=== PATIENT | male | born 1965 | race Caucasian/White ===

== ENCOUNTER 2020-02-24 14:31 | Outpatient (CLI) | payer OTHER, SELFPAY ==
--- NOTE | ~2020-02-24 | MR_ITS ---
EXAMINATION: MR lumbar spine wo con DATE: 02/24/2020 15:20 INDICATION: Lumbar radiculopathy. TECHNIQUE: Magnetic resonance imaging (MRI) of the lumbar spine was performed without intravenous con trast. Sequences included sagittal T2-weighted FSE, sagittal T2-weighted FS FSE, sagittal T1-weighted FSE, and axial T2-weighted FSE. COMPARISON: None FINDINGS: There is 5 degrees dextrocurvature of lumbar spine. There are Schmorl's nodes at most level s. There is mildly decreased disc height at T11-T12 and L4-L5. The distal spinal cord signal intensit y is normal. The conus medullaris is at T12-L1. The following disc levels are specifically discussed: L1-L2: The disc is bulging. There is moderate right and mild left facet joint osteoarthritis. There i s moderate right and mild left neural foraminal stenosis. There is mild central canal stenosis. L2-L3: The disc is bulging. There is moderate bilateral facet joint osteoarthritis. There is mild lisa ateral neural foraminal stenosis. There is mild central canal stenosis. L3-L4: The disc is bulging. There is moderate right and severe left facet joint osteoarthritis. There is mild bilateral neural foraminal stenosis. There is mild central canal stenosis. L4-L5: The disc is bulging and has an annular fissure. There is severe bilateral facet joint osteoart hritis. Epidural lipomatosis is noted. There is mild bilateral neural foraminal stenosis. There is mo derate central canal stenosis. L5-S1: The disc is bulging and has an annular fissure. There is severe right and moderate left facet joint osteoarthritis. There is mild bilateral neural foraminal stenosis. There is mild central canal stenosis. IMPRESSION: 1. Moderate lumbar spondylosis. Reviewed, dictated and finalized at location A.
== END 2020-02-24 14:32 | disposition home or self-care (01) ==
PROVIDERS: PCP Family Medicine; Visit Provider Nurse Practitioner Family
DX: M47.26 Other spondylosis with radiculopathy, lumbar region (principal)
CPT/HCPCS: 72148

== ENCOUNTER 2020-12-30 10:04 | Emergency (ER) | payer OTHER, SELFPAY ==
--- NOTE | 2020-12-30 10:10 | ED.URI ---
HPI - URI/Sore Throat General Chief Complaint: Upper Respiratory Infection Stated Complaint: Sinus,Cough Time Seen by Provider: 12/30/20 10:16 Source: patient and RN notes reviewed Mode of arrival: ambulatory Limitations: no limitations History of Present Illness HPI Narrative: 55-year-old male presents with concern for 5-day history of sinus drainage, nasal congestion, cough. Reports the cough is causing him to have muscle tightness. Reports the cough is persistent and keeps him awake at night. He denies fever, body aches, sweats. Reports chills. Reports he was vaccinated for Covid. He denies any known sick contacts. Reports he has been taking allergy medicine, has not taken any other fhlk-yqn-rykimsr remedies because he is not sure what he is able to take with his other medicines. MD elicited complaint: cough Related Data Home Medications Medication Instructions Recorded Confirmed rosuvastatin 10 mg tablet 10 mg PO DAILY 05/13/19 12/30/20 lisinopril 20 1 tablet PO DAILY tablet 08/10/19 12/30/20 mg-hydrochlorothiazide 12.5 mg tablet allopurinol 300 mg tablet 300 mg PO DAILY tablet 12/28/20 12/30/20 metoprolol succinate 50 mg 50 mg PO DAILY tablet 12/28/20 12/30/20 tablet,extended release 24 hr Allergies Allergy/AdvReac Type Severity Reaction Status Date / Time No Known Allergies Allergy Verified 12/28/20 14:15 Review of Systems Review of Systems: Narrative: CONSTITUTIONAL: Denies malaise, chills, sweats, or fever. EYES: Denies visual changes, redness, or discharge. ENT: Reports rhinorrhea, congestion, sore throat. Denies sinus pain, otalgia CARDIOVASCULAR: Denies chest pain, palpitations, or edema. RESPIRATORY: Reports persistent cough. Denies dyspnea. GASTROINTESTINAL: Denies abdominal pain, nausea, vomiting, diarrhea SKIN: Denies rash or itching. MUSCULOSKELETAL: Denies myalgia. NEUROLOGIC: Denies headache. All systems reviewed & are unremarkable except as noted in HPI and below PMFSH Past Medical History Medical History Congenital absence of right kidney Dyslipidemia Essential (primary) hypertension Factor 5 Leiden mutation, heterozygous GERD (gastroesophageal reflux disease) Hypertension Idiopathic gout VTE (venous thromboembolism) Surgical History Surgical History History of hernia surgery b/l inguinal hernia repair umblical hernia repair 02/2018 History of tonsillectomy Family History Family History Unknown Malignant neoplasm of prostate Social History Social History Smoking status: Former smoker Tobacco type: cigarettes Second hand tobacco smoke exposure: No Smoking end date: 06/23/02 Alcohol intake: current Alcohol use details: consumes 2 vodka drinks weekly Substance use: never Substance use type: does not use Gender identity (if verbalized by the patient): Male Comments At time of signature, agree with nursing past medical, surgical, social and family history. There is no relevant family history pertinent to the presenting complaint Exam Narrative: Exam Narrative: GENERAL: Well-appearing, well-nourished, and in no acute distress. HEAD: Normocephalic EYES: PERRLA, conjunctivae clear ENT: Nares clear, turbinates erythematous, clear discharge. Mucous membranes moist. TM pearly zhu with sharp light reflex bilaterally; no tragal tenderness. Oropharynx not erythematous without lesions. Postnasal drainage noted tonsils not enlarged and without exudate, no drooling, no hoarseness, no trismus, uvula midline. NECK: Supple. No lymphadenopathy CHEST: Clear to auscultation, breath sounds equal. No wheezing, rhonchi, rales, or stridor. No respiratory distress, speaks in full sentences. HEART: Regular rate and rhythm. No murmur heard. SKIN:
[2020-12-30 10:17] VITALS: BP 135/82; PULSE 89; RESP 18; TEMP 37.2; O2SAT 99
[2020-12-30 10:18] VITALS: BP 135/82; PULSE 89; RESP 18; TEMP 37.2; O2SAT 99
== END 2020-12-30 10:32 | disposition home or self-care (01) ==
PROVIDERS: Emergency Provider Nurse Practitioner; PCP Family Medicine
DX: J40 Bronchitis, not specified as acute or chronic (principal); Z87.891 Personal history of nicotine dependence; E78.5 Hyperlipidemia, unspecified; I10 Essential (primary) hypertension; K21.9 Gastro-esophageal reflux disease without esophagitis; M10.00 Idiopathic gout, unspecified site; Z86.718 Personal history of other venous thrombosis and embolism; D68.51 Activated protein C resistance; Q60.0 Renal agenesis, unilateral
CPT/HCPCS: 99213; G0463

== ENCOUNTER → 2021-08-24 10:56 | Outpatient (CLI) | payer OTHER, SELFPAY ==
--- NOTE | ~2021-08-24 | US_ITS ---
US soft tissue head and neck 08/24/2021 11:11 Indication: Palpable left neck mass Procedure: High-resolution Limited ultrasound of the left neck Comparison: . No prior studies for comparison. Findings: There are 2 adjacent hypoechoic masses without echogenic hilum, largest measuring 3 x 2.2 x 1.7 cm and the smaller measuring 11 mm. These are likely pathologic lymph nodes. Impression: 1: Pathologic enlarged left neck lymph nodes. These may be reactive, although malignancy is not exclu ded. Consider percutaneous biopsy. Reviewed, dictated and finalized at location A. [employer] PROFESSOR Impression: 1: Pathologic enlarged left neck lymph nodes. These may be reactive, although m alignancy is not excluded. Consider percutaneous biopsy.
== END ==
PROVIDERS: PCP Family Medicine; Visit Provider Nurse Practitioner
DX: R59.0 Localized enlarged lymph nodes (principal)
CPT/HCPCS: 76536

== ENCOUNTER 2021-09-04 10:30 | Outpatient (CLI) | payer OTHER, SELFPAY ==
--- NOTE | ~2021-09-04 | US_ITS ---
EXAMINATION: US soft tissue head and neck DATE: 09/04/2021 11:30 INDICATION: Localized enlarged left cervical lymph nodes TECHNIQUE: Multiple grayscale and Doppler ultrasound images of the head of concern at the left neck w ere obtained for biopsy planning. While reviewing the risks and benefits of the procedure with the pa tient is determined that the patient had not discontinued his anticoagulation. It was elected to defe r and reschedule the biopsy following appropriate discontinuation of anticoagulation. COMPARISON: 08/24/2021 FINDINGS: No significant interval change in a 2.5 x 1.7 x 1.7 cm hypoechoic left jugular chain lymph node with vascular flow seen along a small fatty hilum. IMPRESSION: 1. Planned biopsy of a concerning enlarged left jugular chain lymph node which following discussion w ith the patient was deferred due to failure to discontinue anticoagulation. The patient will discuss articulation with his primary care physician with plans to reschedule the biopsy following temporary discontinuation of anticoagulation. Reviewed, dictated and finalized at location A. IMPRESSION: 1. Planned biopsy of a concerning enlarged left jugular chain lymph node which following discussion with the patient was deferred due to failure to discontinu e anticoagulation. The patient will discuss articulation with his primary care physician with plans to reschedule the biopsy following temporary discontinuati on of anticoagulation.
== END 2021-09-04 10:31 | disposition home or self-care (01) ==
LOC: ANHIMG 10:30
PROVIDERS: PCP Family Medicine; Visit Provider Nurse Practitioner
DX: R59.0 Localized enlarged lymph nodes (principal)
CPT/HCPCS: 76536

== ENCOUNTER 2021-09-14 08:57 | Outpatient (CLI) | payer OTHER, SELFPAY ==
--- NOTE | ~2021-09-14 | US_ITS ---
EXAMINATION: US biopsy lymph node DATE: 09/14/2021 09:54 INDICATION: Localized enlarged lymph nodes of the left neck TECHNIQUE: The procedure including the risks and benefits was discussed with the patient. Risks discu ssed included bleeding and infection. The patient understood the risks and agreed to proceed. The sk in overlying the left neck was prepped and draped in usual sterile fashion. Anesthetic was administe red with 1% lidocaine subcutaneously. A 14 gauge core biopsy needle was advanced under continuous ul trasound observation to the lesion of interest. 5 core biopsy specimens were obtained. The needle w as removed and the entry site was cleaned and dressed. Post procedure ultrasound demonstrated no hem orrhage. FINDINGS: Ultrasound images demonstrate biopsy needles advanced into a 2.5 x 1.8 cm left posterior tr iangle cervical lymph node. IMPRESSION: 1. Successful Ultrasound-guided biopsy of an enlarged left cervical lymph node. Reviewed, dictated and finalized at location A.
== END 2021-09-14 08:58 | disposition home or self-care (01) ==
LOC: ANHIMG 08:59
PROVIDERS: PCP Family Medicine; Visit Provider Nurse Practitioner
DX: R59.0 Localized enlarged lymph nodes (principal); C77.0 Secondary and unspecified malignant neoplasm of lymph nodes of head, face and neck
CPT/HCPCS: 38505; 76942; 88108; 88184; 88185; 88305; 88342

== ENCOUNTER → 2022-04-19 09:58 | Outpatient (CLI) | payer OTHER, SELFPAY ==
--- NOTE | ~2022-04-19 | XR_ITS ---
EXAMINATION: XR hand RT 2V INDICATION: Right hand pain, injury to third metacarpophalangeal joint TECHNIQUE: Three views of the right hand are obtained. COMPARISON: 09/03/2007 FINDINGS: Bone alignment is normal. There is no fracture. There is mild osteoarthritis of multiple in terphalangeal joints. IMPRESSION: 1. No acute osseous abnormality. Reviewed, dictated and finalized at location A.
== END ==
PROVIDERS: PCP Nurse Practitioner Family; Visit Provider Nurse Practitioner Family
DX: S69.91XA Unspecified injury of right wrist, hand and finger(s), initial encounter (principal); X58.XXXA Exposure to other specified factors, initial encounter
CPT/HCPCS: 73120

== ENCOUNTER 2023-10-02 18:14 | Emergency (ER) | payer OTHER, SELFPAY ==
[2023-10-02 18:23] VITALS: BP 118/82; PULSE 77; RESP 18; TEMP 36.9; O2SAT 100
--- NOTE | 2023-10-02 18:26 | ED.URI ---
HPI - URI/Sore Throat General Stated Complaint: Sinus Problems Time Seen by Provider: 10/02/23 18:25 Source: patient Mode of arrival: ambulatory Limitations: no limitations History of Present Illness HPI Narrative: Piyush is a 4-year-old male patient presenting to the clinic today with complaints of possible sinus infection x3 weeks. Reports he is having a lot of pain is tenderness to the left maxilla-pain is radiating into the left ear and left jaw. Denies any fever or chills. Feels nasally congested and feels as though drainage is going down the back of his throat. 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 MD elicited complaint: cough, nasal congestion and sinus pain Related Data Home Medications Medication Instructions Recorded Confirmed rosuvastatin 10 mg tablet (Crestor) 10 mg PO QHS 07/02/21 05/26/23 cholecalciferol (vitamin D3) 50 50 mcg PO DAILY 05/21/22 05/26/23 mcg (2,000 unit) tablet esomeprazole magnesium 20 mg 20 mg PO DAILY 05/26/23 05/26/23 capsule,delayed release (Nexium) lisinopril 10 mg tablet 10 mg PO DAILY 05/26/23 05/26/23 Allergies Allergy/AdvReac Type Severity Reaction Status Date / Time No Known Allergies Allergy Verified 05/26/23 08:33 Review of Systems Review of Systems: Pertinent positives per HPI. Patient denies any fever, chills, rash, headache, visual changes, dizziness, cough, shortness of breath, chest pain, palpitations, nausea, vomiting, diarrhea, constipation, abdominal pain, or any urinary issues. [facility] Past Medical History Medical History Chronic low back pain Congenital absence of right kidney Dyslipidemia Essential (primary) hypertension Factor 5 Leiden mutation, heterozygous GERD (gastroesophageal reflux disease) History of COVID-19 04/2020 Idiopathic gout Squamous cell carcinoma of tongue (~08/2021) Vitamin D deficiency VTE (venous thromboembolism) (~04/2019) Surgical History Surgical History H/O esophagogastroduodenoscopy (~07/2021) History of gastrostomy tube placement (~12/2021) removed in 02/2022 - due to oral syed from radiation therapy History of hernia surgery b/l inguinal hernia repair umblical hernia repair 02/2018 History of tonsillectomy (~1968) Family History Family History Unknown Malignant neoplasm of prostate Social History Social History Smoking status: Former smoker (< 15 pack years) Tobacco type: cigarettes Second hand tobacco smoke exposure: No Smoking end date: 06/23/06 Alcohol intake: current Alcohol use details: consumes 2 vodka drinks weekly Substance use: never Substance use type: does not use Lack of Transportation: No Lack of Food: Never True Current Housing: I Have Housing Concerned About Future Housing: No Difficulty Paying Gas/Electric Bills: No Difficulty Paying for Meds: No Currently Unemployed: No Education: Decline to Answer Living arrangements: with family Occupation/Education: occupation Gender identity (if verbalized by the patient): Male Sexual Orientation (if Verbalized by the Patient): Straight or Heterosexual Agree to blood products: Yes Comments At the time of my signature, I reviewed and agree with the nursing past medical, surgical, social, and family history. There is no relevant family history pertinent to the patient complaint. Exam Narrative: General: Well-developed, well nourished, in no apparent distress Head: Normocephalic, atraumatic Eyes: Pupils equally round and reactive to light bilaterally, EOM intact, sclera and conjunctive clear, no discharge, lids normal Ears: TMs intact and congested, ear canals clear, no drainage, grossly hearing normal. Nose: Nares patent, clear nasal discharge, severe inflammati
== END 2023-10-02 18:38 | disposition home or self-care (01) ==
PROVIDERS: Emergency Provider Nurse Practitioner Family; PCP Family Medicine
DX: J01.90 Acute sinusitis, unspecified (principal); Z87.891 Personal history of nicotine dependence; Q60.0 Renal agenesis, unilateral; E78.5 Hyperlipidemia, unspecified; I10 Essential (primary) hypertension; D68.51 Activated protein C resistance; K21.9 Gastro-esophageal reflux disease without esophagitis; E55.9 Vitamin D deficiency, unspecified; Z85.810 Personal history of malignant neoplasm of tongue; Z86.718 Personal history of other venous thrombosis and embolism
CPT/HCPCS: 99213; G0463

== ENCOUNTER 2024-04-19 11:12 | Emergency (ER) | payer OTHER, SELFPAY ==
[2024-04-19 11:25] VITALS: BP 126/83; PULSE 76; RESP 16; TEMP 36.9; O2SAT 100
--- NOTE | 2024-04-19 11:39 | ED.URI ---
HPI - URI/Sore Throat General Chief Complaint: Upper Respiratory Infection Stated Complaint: sore throat Time Seen by Provider: 04/19/24 11:30 Source: patient and RN notes reviewed Mode of arrival: ambulatory Limitations: no limitations History of Present Illness HPI Narrative: Patient presents today complaining of sore throat and postnasal drip since yesterday with developing chest congestion and cough. Denies fever or shortness of breath. He took a dose of size all yesterday for his postnasal drainage. Patient has history of carcinoma of the tongue and due to this has some issues with his swallowing. Related Data Home Medications Medication Instructions Recorded Confirmed rosuvastatin 10 mg tablet (Crestor) 10 mg PO QHS 07/02/21 04/19/24 cholecalciferol (vitamin D3) 50 50 mcg PO DAILY 05/21/22 04/19/24 mcg (2,000 unit) tablet esomeprazole magnesium 20 mg 20 mg PO DAILY 05/26/23 04/19/24 capsule,delayed release (Nexium) lisinopril 10 mg tablet 10 mg PO DAILY 05/26/23 04/19/24 Allergies Allergy/AdvReac Type Severity Reaction Status Date / Time No Known Allergies Allergy Verified 04/19/24 11:16 Review of Systems Review of Systems: CONSTITUTIONAL: Denies body aches, fever, chills, or sweats. EYES: Denies visual changes, redness, or discharge. ENT: Denies rhinorrhea, or otalgia.+ congestion, sore throat CARDIOVASCULAR: Denies chest pain, palpitations, or edema. RESPIRATORY: Denies dyspnea.+ cough, chest congestion GASTROINTESTINAL: Denies abdominal pain, nausea, vomiting, or diarrhea. GENITOURINARY: Denies dysuria or hematuria. SKIN: Denies rash, itching, or wounds. MUSCULOSKELETAL: Denies back pain, joint pain, or myalgia. NEUROLOGIC: Denies headache, numbness, tingling, or weakness. PSYCH: Denies depression or anxiety. [facility] Past Medical History Medical History Chronic low back pain Congenital absence of right kidney Dyslipidemia Essential (primary) hypertension Factor 5 Leiden mutation, heterozygous GERD (gastroesophageal reflux disease) History of COVID-19 04/2020 Idiopathic gout Immunization due Squamous cell carcinoma of tongue (~08/2021) Vitamin D deficiency VTE (venous thromboembolism) (~04/2019) Surgical History Surgical History H/O esophagogastroduodenoscopy (~07/2021) History of gastrostomy tube placement (~12/2021) removed in 02/2022 - due to oral syed from radiation therapy History of hernia surgery b/l inguinal hernia repair umblical hernia repair 02/2018 History of tonsillectomy (~1968) Family History Family History Unknown Malignant neoplasm of prostate Social History Social History Smoking status: Former smoker (< 15 pack years) Tobacco type: cigarettes Second hand tobacco smoke exposure: No Smoking end date: 06/23/06 Alcohol intake: current Alcohol use details: consumes 2 vodka drinks weekly Substance use: never Substance use type: does not use Lack of Transportation: No Lack of Food: Never True Current Housing: I Have Housing Concerned About Future Housing: No Difficulty Paying Gas/Electric Bills: No Difficulty Paying for Meds: No Currently Unemployed: No Education: Decline to Answer Living arrangements: with family Occupation/Education: occupation Gender identity (if verbalized by the patient): Male Sexual Orientation (if Verbalized by the Patient): Straight or Heterosexual Agree to blood products: Yes Comments At time of signature, I have reviewed and agree with nursing past medical, surgical, social and family history unless otherwise noted. Please see nursing chart for further information. There is no relevant family history pertinent to the presenting complaint Exam Narrative: GENERAL: Mildly ill-appearing, well-nourished, and in no acute distress. HEAD: Normocephalic, atraumatic. EYES: EOMI. No redness or drainage. Conjunctivae normal. ENT: Mucous membranes pink and moist. Nares congested. No rhinorrhea. TMs normal bilaterally. Throat mildly erythematous without edema or exudate. Uvula midline. NECK: Normal AROM. Supple. No lymphadenopathy. CHEST: No respiratory distress. Clear to auscultation. HEART: Regular rate and rhythm. No murmur appreciated. EXTREMITIES: Normal range of motion. No edema. SKIN: Warm, dry, no rash. Capillary refill normal. Normal skin turgor. NEURO: No focal deficits. Alert and oriented x3. Gait steady. PSYCH: Normal affect. No signs of depression or anxiety. Course Course Level of Care: Express Care Visit Vital Signs Vital signs: Vital Signs Temperature 98.4 F 04/19/24 11:25 Pulse Rate 76 04/19/24 11:25 Respiratory Rate 16 04/19/24 11:25 Blood Pressure 126/83 04/19/24 11:25 Pulse Oximetry 100 04/19/24 11:25 Oxygen Delivery Room Air 04/19/24 11:25 Temperature 98.4 F 04/19/24 11:25 Pulse Rate 76 04/19/24 11:25 Respiratory Rate 16 04/19/24 11:25 Blood Pressure 126/83 04/19/24 11:25 Pulse Oximetry 100 04/19/24 11:25 Oxygen Delivery Room Air 04/19/24 11:25 Reviewed MDM - URI/Sore Throat MDM Narrative Medical decision making narrative: COVID and influenza negative. Symptoms likely viral in etiology. Discussed [id number] medication use and duration of illness. No prescription medications indicated at this time. Anticipatory guidance given. Differential Diagnosis Differential diagnosis: Likely upper respiratory infection, sinusitis, viral infection, influenza and other (COVID) Lab Data Attestation: I reviewed the patient's lab results. Critical Care Time Critical Care Time Critical Care Time: No Discharge Plan Discharge Clinical Impression: Upper respiratory infection Qualifiers: URI type: unspecified URI Qualified Code(s): J06.9 - Acute upper respiratory infection, unspecified Patient Disposition: Home, Self-Care Condition: Stable Instructions: Upper Respiratory Infection (DC) Additional Instructions: Your COVID and influenza swabs are both negative today. Your symptoms are likely due to a viral illness, which is not treated with antibiotics. Virus symptoms can last for up to 7-10days. Take Tylenol for pain or fever. Sudafed can be used for nasal congestion. Nasal spray such as Flonase or saline nasal spray can be used locally for nasal congestion. Rest and stay hydrated. Follow up with your PCP in 7 days if symptoms are not improving. Go to the ER immediately if you develop shortness of breath, difficulty swallowing, or any other concerning symptoms. Your blood pressure was elevated above 120/80 today at Urgent Care. This puts you above the threshold for follow up. Please schedule a followup visit with your personal physician as soon as possible, for further evaluation and treatment. Even blood pressure exceeding 120/80 may indicate pre-hypertension. Prescriptions: No Action rosuvastatin [Crestor] 10 mg tablet 10 mg PO QHS lisinopril 10 mg tablet 10 mg PO DAILY esomeprazole magnesium [Nexium] 20 mg capsule,delayed release(DR/EC) 20 mg PO DAILY cholecalciferol (vitamin D3) 50 mcg (2,000 unit) tablet 50 mcg PO DAILY Eliquis 5 mg tablet 5 mg PO BID Qty: 180 1RF allopurinol 300 mg tablet 300 mg PO DAILY Qty: 90 1RF metoprolol succinate 50 mg tablet extended release 24 hr 50 mg PO DAILY Qty: 90 1RF Follow-up/Referrals: Mamadou Hawthorne MD [Primary Care Provider] - Time of Disposition: 12:01
[2024-04-19 12:05] LABS: EDCOVIDSCREEN Negative (Negative); EDINFLUASCREEN Negative (Negative); EDINFLUBSCREEN Negative (Negative)
== END 2024-04-19 12:05 | disposition home or self-care (01) ==
PROVIDERS: Emergency Provider Nurse Practitioner; PCP Family Medicine
DX: J06.9 Acute upper respiratory infection, unspecified (principal); Z20.822 Contact with and (suspected) exposure to COVID-19; Z87.891 Personal history of nicotine dependence; I10 Essential (primary) hypertension; E78.5 Hyperlipidemia, unspecified; K21.9 Gastro-esophageal reflux disease without esophagitis; D68.51 Activated protein C resistance; Q63.9 Congenital malformation of kidney, unspecified; M10.00 Idiopathic gout, unspecified site; E55.9 Vitamin D deficiency, unspecified; Z86.16 Personal history of COVID-19; Z85.810 Personal history of malignant neoplasm of tongue; Z86.718 Personal history of other venous thrombosis and embolism
CPT/HCPCS: 87426; 87804; 99212; G0463